=== PATIENT | female | born 1940 | race Caucasian/White ===

== ENCOUNTER → 2021-03-27 | Outpatient (CLI) | payer OTHER ==
[2021-03-27 23:59] LABS: C DIFFICILE DNA POSITIVE (Negative)
== END | disposition home or self-care (01) ==
LOC: LAB SHORT 15:34 → LAB 15:34 → LAB FUT 03-20 10:40 → EDSTATUS 03-20 10:40
PROVIDERS: Internal Medicine Gastroenterology
DX: R19.7 Diarrhea, unspecified (principal)
CPT/HCPCS: 87324; 87493

== ENCOUNTER → 2021-06-04 | Outpatient (CLI) | payer OTHER | LOC: LAB SHORT 07:20 | DX: R21 Rash and other nonspecific skin eruption (principal) | CPT/HCPCS: 88312 ==

== ENCOUNTER → 2021-11-29 | Outpatient (CLI) | payer OTHER | END | disposition home or self-care (01) | LOC: LAB 13:45 → LAB SHORT 13:45 | DX: L08.0 Pyoderma (principal) | CPT/HCPCS: 87070; 87205 ==

== ENCOUNTER → 2024-02-24 | Outpatient (CLI) | payer OTHER | END | disposition home or self-care (01) | LOC: LAB 14:05 → LAB SHORT 14:05 | DX: L08.0 Pyoderma (principal) ==

== ENCOUNTER → 2024-10-28 | Outpatient (CLI) | payer OTHER | LOC: LAB SHORT 16:30 → LAB 16:30 | DX: L08.0 Pyoderma (principal) | CPT/HCPCS: 87070; 87077; 87186; 87205 ==

== ENCOUNTER → 2025-01-05 | Outpatient (CLI) | payer OTHER | LOC: LAB SHORT 14:46 → LAB 14:46 | DX: L08.0 Pyoderma (principal) | CPT/HCPCS: 87070; 87205 ==

== ENCOUNTER 2025-01-12 04:35 | Day surgery (SDC) | payer OTHER | END 2025-01-12 23:00 | disposition home or self-care (01) | LOC: WOUND 04:35 | DX: L08.0 Pyoderma (principal); I10 Essential (primary) hypertension; L89.309 Pressure ulcer of unspecified buttock, unspecified stage | CPT/HCPCS: G0463 ==

== ENCOUNTER 2025-01-20 00:18 | Day surgery (SDC) | payer OTHER ==
[2025-01-20] MEDS ORDERED: Lidocaine HCl 4% Cream 5 GM ONE (14:53)
[2025-01-20] MEDS ORDERED: Silver Nitr/Potassium Nitrate 1 EA APPL ONE (15:46)
== END 2025-01-20 23:00 | disposition home or self-care (01) ==
LOC: WOUND 00:18
DX: L08.0 Pyoderma (principal); L98.412 Non-pressure chronic ulcer of buttock with fat layer exposed
CPT/HCPCS: A9270

== ENCOUNTER 2025-01-27 04:02 | Day surgery (SDC) | payer OTHER ==
[2025-01-27] MEDS ORDERED: Lidocaine HCl 4% Cream 5 GM ONE (14:15)
== END 2025-01-27 23:00 | disposition home or self-care (01) ==
LOC: WOUND 04:02
DX: L08.0 Pyoderma (principal); L98.412 Non-pressure chronic ulcer of buttock with fat layer exposed; I10 Essential (primary) hypertension; R73.03 Prediabetes
CPT/HCPCS: A6213; A9270

== ENCOUNTER 2025-02-03 01:58 | Day surgery (SDC) | payer OTHER | END 2025-02-03 23:00 | disposition home or self-care (01) | LOC: WOUND 01:58 | DX: L98.412 Non-pressure chronic ulcer of buttock with fat layer exposed (principal); L08.0 Pyoderma | CPT/HCPCS: G0463 ==

== ENCOUNTER 2025-02-10 02:42 | Day surgery (SDC) | payer OTHER ==
[2025-02-10] MEDS ORDERED: Lidocaine HCl 4% Cream 5 GM ONE (13:43)
== END 2025-02-10 23:00 | disposition home or self-care (01) ==
LOC: WOUND 02:42
DX: L98.412 Non-pressure chronic ulcer of buttock with fat layer exposed (principal); L08.0 Pyoderma
CPT/HCPCS: A9270; G0463

== ENCOUNTER 2025-02-17 01:49 | Day surgery (SDC) | payer OTHER | END 2025-02-17 23:00 | disposition home or self-care (01) | LOC: WOUND 01:49 | DX: L98.412 Non-pressure chronic ulcer of buttock with fat layer exposed (principal); L08.0 Pyoderma | CPT/HCPCS: A6213; G0463 ==

== ENCOUNTER 2025-02-25 05:12 | Day surgery (SDC) | payer OTHER | END 2025-02-25 23:00 | disposition home or self-care (01) | LOC: WOUND 05:12 | DX: L98.412 Non-pressure chronic ulcer of buttock with fat layer exposed (principal); L08.0 Pyoderma; I10 Essential (primary) hypertension; R73.03 Prediabetes | CPT/HCPCS: G0463 ==

== ENCOUNTER 2025-03-10 01:51 | Day surgery (SDC) | payer OTHER ==
[2025-03-10] MEDS ORDERED: Lidocaine HCl 4% Cream 5 GM ONE (14:54)
== END 2025-03-10 23:00 | disposition home or self-care (01) ==
LOC: WOUND 01:51
DX: L08.0 Pyoderma (principal); L98.412 Non-pressure chronic ulcer of buttock with fat layer exposed
CPT/HCPCS: A9270

== ENCOUNTER 2025-03-31 00:53 | Day surgery (SDC) | payer OTHER ==
[2025-03-31] MEDS ORDERED: Lidocaine HCl 4% Cream 5 GM ONE (14:47)
[2025-03-31] MEDS ORDERED: Silver Nitr/Potassium Nitrate 1 EA APPL ONE (15:46)
== END 2025-03-31 23:00 | disposition home or self-care (01) ==
LOC: WOUND 00:53
DX: L98.412 Non-pressure chronic ulcer of buttock with fat layer exposed (principal); L08.0 Pyoderma; I10 Essential (primary) hypertension
CPT/HCPCS: A9270

== ENCOUNTER 2025-04-28 01:33 | Day surgery (SDC) | payer OTHER ==
[2025-04-28] MEDS ORDERED: Lidocaine HCl 4% Cream 5 GM ONE (14:44)
== END 2025-04-28 23:00 | disposition home or self-care (01) ==
LOC: WOUND 01:33
DX: E11.622 Type 2 diabetes mellitus with other skin ulcer (principal); L98.412 Non-pressure chronic ulcer of buttock with fat layer exposed; L08.0 Pyoderma; I10 Essential (primary) hypertension
CPT/HCPCS: A9270

== ENCOUNTER 2025-05-05 02:23 | Day surgery (SDC) | payer OTHER ==
[2025-05-05] MEDS ORDERED: Lidocaine HCl 4% Cream 5 GM ONE (14:48)
== END 2025-05-05 23:00 | disposition home or self-care (01) ==
LOC: WOUND 02:23
DX: L98.412 Non-pressure chronic ulcer of buttock with fat layer exposed (principal); L08.0 Pyoderma
CPT/HCPCS: A9270; G0463

== ENCOUNTER 2025-05-12 03:34 | Day surgery (SDC) | payer OTHER ==
[2025-05-12] MEDS ORDERED: Lidocaine HCl 4% Cream 5 GM ONE (14:49)
== END 2025-05-12 23:00 | disposition home or self-care (01) ==
LOC: WOUND 03:34
DX: L98.412 Non-pressure chronic ulcer of buttock with fat layer exposed (principal); L08.0 Pyoderma
CPT/HCPCS: A9270; G0463

== ENCOUNTER 2025-05-19 03:58 | Day surgery (SDC) | payer OTHER ==
[2025-05-19] MEDS ORDERED: Lidocaine HCl 4% Cream 5 GM ONE (14:46)
== END 2025-05-19 23:00 | disposition home or self-care (01) ==
LOC: WOUND 03:58
DX: L08.0 Pyoderma (principal); L98.412 Non-pressure chronic ulcer of buttock with fat layer exposed; I10 Essential (primary) hypertension; R73.03 Prediabetes
CPT/HCPCS: A9270

== ENCOUNTER 2025-05-26 01:55 | Day surgery (SDC) | payer OTHER ==
[2025-05-26] MEDS ORDERED: Lidocaine HCl 4% Cream 5 GM ONE (14:39)
== END 2025-05-26 23:00 | disposition home or self-care (01) ==
LOC: WOUND 01:55
DX: L08.0 Pyoderma (principal); L98.412 Non-pressure chronic ulcer of buttock with fat layer exposed; I10 Essential (primary) hypertension
CPT/HCPCS: A9270; G0463

== ENCOUNTER 2025-06-09 02:22 | Day surgery (SDC) | payer OTHER ==
[2025-06-09] MEDS ORDERED: Lidocaine HCl 4% Cream 5 GM ONE (15:17)
== END 2025-06-09 23:00 | disposition home or self-care (01) ==
LOC: WOUND 02:22
DX: L08.0 Pyoderma (principal); L98.412 Non-pressure chronic ulcer of buttock with fat layer exposed; I10 Essential (primary) hypertension; R73.03 Prediabetes
CPT/HCPCS: A9270; G0463

== ENCOUNTER 2025-06-16 03:30 | Day surgery (SDC) | payer OTHER ==
[2025-06-16] MEDS ORDERED: Lidocaine HCl 4% Cream 5 GM ONE (14:48)
== END 2025-06-16 23:16 | disposition home or self-care (01) ==
LOC: WOUND 03:30
DX: L08.0 Pyoderma (principal); L98.412 Non-pressure chronic ulcer of buttock with fat layer exposed; I10 Essential (primary) hypertension; R73.03 Prediabetes
CPT/HCPCS: A9270; G0463

== ENCOUNTER 2025-06-23 00:58 | Day surgery (SDC) | payer OTHER ==
[2025-06-23] MEDS ORDERED: Lidocaine HCl 4% Cream 5 GM ONE (10:47)
== END 2025-06-23 23:00 | disposition home or self-care (01) ==
LOC: WOUND 00:58
DX: L08.0 Pyoderma (principal); L98.412 Non-pressure chronic ulcer of buttock with fat layer exposed; I10 Essential (primary) hypertension; R73.03 Prediabetes
CPT/HCPCS: A9270; G0463

== ENCOUNTER 2025-07-14 02:12 | Day surgery (SDC) | payer OTHER ==
[2025-07-14] MEDS ORDERED: Lidocaine HCl 4% Cream 5 GM ONE (14:50)
== END 2025-07-14 23:00 | disposition home or self-care (01) ==
LOC: WOUND 02:12
DX: L08.0 Pyoderma (principal); L98.412 Non-pressure chronic ulcer of buttock with fat layer exposed; I10 Essential (primary) hypertension
CPT/HCPCS: A9270; G0463

== ENCOUNTER 2025-08-04 03:06 | Day surgery (SDC) | payer OTHER ==
[2025-08-04] MEDS ORDERED: Lidocaine HCl 4% Cream 5 GM ONE (14:43)
== END 2025-08-04 23:00 | disposition home or self-care (01) ==
LOC: WOUND 03:06
DX: L08.0 Pyoderma (principal); I10 Essential (primary) hypertension; R73.03 Prediabetes
CPT/HCPCS: A9270; G0463

== ENCOUNTER 2025-08-18 02:44 | Day surgery (SDC) | payer OTHER ==
[2025-08-18] MEDS ORDERED: Lidocaine HCl 4% Cream 5 GM ONE (14:34)
== END 2025-08-18 23:00 | disposition home or self-care (01) ==
LOC: WOUND 02:44
DX: L08.0 Pyoderma (principal); I10 Essential (primary) hypertension; R73.03 Prediabetes
CPT/HCPCS: A9270; G0463

== ENCOUNTER 2025-09-01 00:47 | Day surgery (SDC) | payer OTHER ==
[2025-09-01] MEDS ORDERED: Lidocaine HCl 4% Cream 5 GM ONE (14:38)
== END 2025-09-01 23:00 | disposition home or self-care (01) ==
LOC: WOUND 00:47
DX: L08.0 Pyoderma (principal); I10 Essential (primary) hypertension
CPT/HCPCS: A9270; G0463

== ENCOUNTER 2025-09-22 02:12 | Day surgery (SDC) | payer OTHER ==
[2025-09-22] MEDS ORDERED: Lidocaine HCl 4% Cream 5 GM ONE (14:01)
== END 2025-09-22 23:00 | disposition home or self-care (01) ==
LOC: WOUND 02:12
DX: L98.412 Non-pressure chronic ulcer of buttock with fat layer exposed (principal); L08.0 Pyoderma
CPT/HCPCS: A9270; G0463